=== PATIENT | male | born 1955 | race Caucasian/White ===

== ENCOUNTER 2017-08-23 00:03 | Emergency (ER) | payer OTHER ==
[~2017-08-23] VITALS: Ht 172.7 cm; Wt 73.5 kg
[2017-08-23 00:05] VITALS: BP_SYST 159
--- NOTE | 2017-08-23 00:05 | NUR ---
Patient to ER bed 2 to gown for evaluation. Side rails up. Report given to Amada VASQUES.
--- NOTE | 2017-08-23 00:10 | NUR ---
Patient AAO x4, sitting in bed c/o right pointer finger crush injury from "smashing finger in car door." Patient actively bleeding, states he takes anticoagulants. No acute distress noted. Will continue to monitor.
--- NOTE | 2017-08-23 00:30 | NUR ---
Patient finger placed to soak in NS and betadine soak. No adverse reactions noted.
--- NOTE | 2017-08-23 00:30 | NUR ---
ER at bedside examining patient.
[2017-08-23] MEDS ORDERED: LIDOCAINE 1% 10 MG/ML, 20 ML MDV INJ ONE (00:45)
[2017-08-23] MEDS ORDERED: LIDOCAINE 1%, 20 ML MDV 20 ML ONE (00:46)
--- NOTE | 2017-08-23 00:50 | NUR ---
Dr. Thomason at bedside performing laceration repair, no acute distress noted, no adverse reactions noted. Sterile technique observed. Will continue to monitor.
--- NOTE | 2017-08-23 01:10 | NUR ---
Non-adhesive dressing and kerlex bandage placed to right pointer finger per Dr. Thomason instruction.
[2017-08-23] MEDS ORDERED: DIPH-TET Vacc 0.5 ML VIAL I.M. ONE ×2 (01:15→01:25)
[2017-08-23 01:30] VITALS: BP_SYST 135
--- NOTE | 2017-08-23 01:30 | NUR ---
Patient given written and verbal discharge instructions and verbalizes understanding. ER MD discussed with patient the results and treatment provided. Patient in stable condition. ID arm band removed. Rx of norco given. Patient educated on pain management and to follow up with PMD. Pain Scale 2/10, tolerable by patient .Opportunity for questions provided and answered.
== END 2017-08-23 01:30 | disposition home or self-care (01) ==
LOC: SED 00:03
DX: S61.210A Laceration without foreign body of right index finger without damage to nail, initial encounter (principal); K21.9 Gastro-esophageal reflux disease without esophagitis; I10 Essential (primary) hypertension; I25.2 Old myocardial infarction; Z95.9 Presence of cardiac and vascular implant and graft, unspecified; W23.0XXA Caught, crushed, jammed, or pinched between moving objects, initial encounter; Y93.89 Activity, other specified; Y92.89 Other specified places as the place of occurrence of the external cause; Y99.8 Other external cause status
CPT/HCPCS: 12001; 90471; 90714; 99283; J2001